=== PATIENT | female | born 1990 | race Caucasian/White ===

== ENCOUNTER 2021-06-09 17:33 | Inpatient (IN) | payer OTHER ==
[~2021-06-09] VITALS: Ht 162.6 cm; Wt 98.2 kg
[2021-06-09] MEDS ORDERED: LORazepam 2 MG TABLET PO ONE (21:15)
[2021-06-09] MEDS ORDERED: QUEtiapine FUMARATE 100 MG TABLET PO ONE (21:15)
[2021-06-09] MEDS ORDERED: METOCLOPRAMIDE HCL 5 MG/ML 2 ML VIAL IVP PRN (21:45)
[2021-06-09] MEDS ORDERED: LOPERAMIDE HCL 2 MG CAPSULE PO PRN (21:45)
[2021-06-09] MEDS ORDERED: SODIUM CHLORIDE 0.9% 1,000 ML IV ONE (21:45)
[2021-06-09 22:08] LABS: COVID AG,FIA SOURCE NASAL SWAB
[2021-06-09] MEDS: TEMAZEPAM 15 MG CAPSULE PO SCH (23:50)
[2021-06-10 09:30] VITALS: BP 126/77
[2021-06-10] MEDS: ACETAMINOPHEN/CODEINE 300-15 MG TABLET PO PRN (12:21)
[2021-06-10 12:46] LABS: GLUCOMETER DEV NAME(LOC) 6S.1; GLUCOSE,POINT OF CARE 207 MG/DL (70-110)
[2021-06-10] MEDS ORDERED: GuaiFENesin/D-METHORPHAN [SUGAR-FREE] 200-20MG/10 ML SYRUP UDCUP PO PRN (13:30)
[2021-06-10 13:31] LABS: BASOPHILS % (AUTO) 0.8 % (0.0-2.0); EOSINOPHILS % (AUTO) 3.2 % (1.0-6.0); HEMATOCRIT 41.9 % (36-46); HEMOGLOBIN 14.4 g/dL (12.0-16.0); LYMPHOCYTES # (AUTO) 1.7 K/uL (1.0-4.8); LYMPHOCYTES % (AUTO) 17.7 % (22.0-44.0); MEAN CORPUSCULAR HEMOGLOBIN 29.2 pg (26.0-34.0); MEAN CORPUSCULAR HGB CONC 34.3 G/dL (31.0-37.0); MEAN CORPUSCULAR VOLUME 85 fL (80-100); MONOCYTES # (AUTO) 0.9 K/uL (0.1-1.0); MONOCYTES % (AUTO) 9.6 % (2.0-9.0); NEUTROPHILS # (AUTO) 6.6 K/uL (1.8-7.7); NEUTROPHILS % (AUTO) 68.7 % (40.0-70.0); PLATELET COUNT (AUTO) 192 K/uL (150-450); RED BLOOD CELL COUNT(AUTO) 4.92 MIL/uL (4.00-5.20); RED CELL DISTRIBUTION WIDTH 13.7 % (11.5-14.5)
[2021-06-10 13:52] LABS: ALANINE AMINOTRANSFERASE 30 U/L (12-78); ALBUMIN 3.1 g/dL (3.4-5.0); ALKALINE PHOSPHATASE 80 U/L (46-116); ANION GAP 7 mmol/L (8-16); ASPARTATE AMINOTRANSFERASE 19 U/L (15-37); BILIRUBIN,TOTAL 0.6 mg/dL (0.1-1.0); CALCIUM, TOTAL 8.6 mg/dL (8.8-10.5); CARBON DIOXIDE 26 mmol/L (22-29); CHLORIDE 104 mmol/L (98-107); CREATININE 0.89 mg/dL (0.60-1.30); GLOMERULAR FILTR. RATE CALC > 60 mL/min (>60); GLUCOSE,RANDOM 145 mg/dL (70-110); POTASSIUM 3.6 mmol/L (3.5-5.1); SODIUM SERUM 137 mmol/L (136-145); TOTAL PROTEIN, SERUM 6.9 g/dL (6.4-8.2); UREA NITROGEN, BLOOD 12 mg/dL (7-18)
[2021-06-10] MEDS: LORazepam 2 MG/ML VIAL IVP PRN (14:41)
[2021-06-10] MEDS: NICOTINE 14 MG/24 HOUR PATCH TD SCH (14:41)
[2021-06-10 16:18] VITALS: BP 144/91
[2021-06-10 16:46] LABS: AMPHET/METH SCREEN,URINE POSITIVE (NEGATIVE); BARBITURATE SCREEN, URINE NEGATIVE (NEGATIVE); BENZODIAZEPINES SCREEN,URINE NEGATIVE (NEGATIVE); CANNABINOID SCREEN,URINE NEGATIVE (NEGATIVE); COCAINE SCREEN,URINE NEGATIVE (NEGATIVE); METHADONE SCREEN, URINE NEGATIVE (NEGATIVE); OPIATE SCREEN,URINE POSITIVE (NEGATIVE); PHENCYCLIDINE SCREEN,URINE NEGATIVE (NEGATIVE)
[2021-06-10] MEDS: MetFORMIN HCL 500 MG TABLET PO SCH (17:47)
[2021-06-10] MEDS: QUEtiapine FUMARATE 25 MG TABLET PO SCH (19:57)
[2021-06-10 20:06] VITALS: BP 131/77
[2021-06-11] MEDS: LORazepam 2 MG/ML VIAL IVP PRN ×2 (05:04→13:36)
[2021-06-11 05:19] VITALS: BP 131/72
[2021-06-11 08:08] VITALS: BP 131/73
[2021-06-11] MEDS: QUEtiapine FUMARATE 25 MG TABLET PO SCH ×2 (08:43→20:53)
[2021-06-11] MEDS: ACETAMINOPHEN/CODEINE 300-15 MG TABLET PO PRN ×2 (08:43→23:36)
[2021-06-11] MEDS: MetFORMIN HCL 500 MG TABLET PO SCH ×2 (08:43→18:02)
[2021-06-11] MEDS: NICOTINE 14 MG/24 HOUR PATCH TD SCH (08:43)
[2021-06-11 08:46] LABS: GLUCOMETER DEV NAME(LOC) 6S.1; GLUCOSE,POINT OF CARE 171 MG/DL (70-110)
[2021-06-11 16:23] VITALS: BP 132/88
[2021-06-11] MEDS ORDERED: LORazepam 2 MG/ML VIAL IVP ONE (18:00)
[2021-06-11 20:41] VITALS: BP 114/67
[2021-06-11] MEDS: TEMAZEPAM 15 MG CAPSULE PO SCH (20:53)
[2021-06-11] MEDS: DICYCLOMINE HCL 10 MG CAPSULE PO PRN (20:58)
[2021-06-12 00:06] VITALS: BP 126/91
[2021-06-12] MEDS: TraZODone HCL 100 MG TABLET PO PRN (00:06)
[2021-06-12 02:51] LABS: GLUCOMETER DEV NAME(LOC) 6S.1; GLUCOSE,POINT OF CARE 149 MG/DL (70-110)
[2021-06-12 05:37] VITALS: BP 142/79
[2021-06-12] MEDS: NICOTINE 14 MG/24 HOUR PATCH TD SCH (08:15)
[2021-06-12] MEDS: MetFORMIN HCL 500 MG TABLET PO SCH ×2 (08:15→18:30)
[2021-06-12] MEDS: QUEtiapine FUMARATE 25 MG TABLET PO SCH (08:15)
[2021-06-12 08:16] VITALS: BP 121/74
[2021-06-12] MEDS: LORazepam 2 MG/ML VIAL IVP PRN (08:25)
[2021-06-12 11:52] LABS: GLUCOMETER DEV NAME(LOC) 6S.1; GLUCOSE,POINT OF CARE 149 MG/DL (70-110)
[2021-06-12] MEDS ORDERED: LORazepam 2 MG/ML VIAL IVP ONE (14:15)
[2021-06-12] MEDS: TEMAZEPAM 15 MG CAPSULE PO SCH (20:24)
[2021-06-12 20:30] VITALS: BP 124/86
[2021-06-13 00:06] LABS: GLUCOMETER DEV NAME(LOC) 6N.1; GLUCOSE,POINT OF CARE 126 MG/DL (70-110)
[2021-06-13 05:10] VITALS: BP 122/74
[2021-06-13] MEDS: LORazepam 2 MG/ML VIAL IVP PRN ×3 (06:41→23:31)
[2021-06-13] MEDS: DICYCLOMINE HCL 10 MG CAPSULE PO PRN (06:46)
[2021-06-13 08:00] VITALS: BP 123/78
[2021-06-13] MEDS: MetFORMIN HCL 500 MG TABLET PO SCH (08:29)
[2021-06-13] MEDS: NICOTINE 14 MG/24 HOUR PATCH TD SCH (08:29)
[2021-06-13] MEDS: QUEtiapine FUMARATE 25 MG TABLET PO SCH (09:21)
[2021-06-13 13:06] LABS: GLUCOMETER DEV NAME(LOC) 6N.1; GLUCOSE,POINT OF CARE 255 MG/DL (70-110)
[2021-06-13] MEDS: ACETAMINOPHEN/CODEINE 300-15 MG TABLET PO PRN (14:08)
[2021-06-13] MEDS ORDERED: DEXTROSE 50%-WATER 25 GM/50 ML SYRINGE IVP PRN (15:30)
[2021-06-13] MEDS: INSULIN LISPRO 100 UNITS/ML SQ PRN ×2 (17:51→20:27)
[2021-06-13] MEDS: MetFORMIN HCL 850 MG TABLET PO SCH (17:53)
[2021-06-13 20:16] LABS: GLUCOMETER DEV NAME(LOC) 6N.1; GLUCOSE,POINT OF CARE 175 MG/DL (70-110)
[2021-06-13] MEDS: TEMAZEPAM 15 MG CAPSULE PO SCH (20:22)
[2021-06-13 20:25] VITALS: BP 123/59
[2021-06-13 21:20] LABS: GLUCOMETER DEV NAME(LOC) 6N.1; GLUCOSE,POINT OF CARE 154 MG/DL (70-110)
[2021-06-14 04:35] VITALS: BP 120/77
[2021-06-14 07:40] VITALS: BP 132/91
[2021-06-14] MEDS: NICOTINE 14 MG/24 HOUR PATCH TD SCH (08:54)
[2021-06-14] MEDS: MetFORMIN HCL 850 MG TABLET PO SCH ×2 (08:55→17:23)
[2021-06-14] MEDS: QUEtiapine FUMARATE 25 MG TABLET PO SCH (08:56)
[2021-06-14 15:36] VITALS: BP 127/71
[2021-06-14 18:01] LABS: GLUCOMETER DEV NAME(LOC) 6N.1; GLUCOSE,POINT OF CARE 128 MG/DL (70-110)
[2021-06-14 19:01] LABS: GLUCOMETER DEV NAME(LOC) 6N.2; GLUCOSE,POINT OF CARE 135 MG/DL (70-110)
[2021-06-14 19:01] LABS: GLUCOMETER DEV NAME(LOC) 6N.2; GLUCOSE,POINT OF CARE 127 MG/DL (70-110)
[2021-06-14 20:13] VITALS: BP 113/71
[2021-06-14] MEDS: TEMAZEPAM 15 MG CAPSULE PO SCH (20:45)
[2021-06-14] MEDS: TraZODone HCL 100 MG TABLET PO PRN (20:45)
[2021-06-14 21:31] LABS: GLUCOMETER DEV NAME(LOC) 6N.2; GLUCOSE,POINT OF CARE 106 MG/DL (70-110)
[2021-06-14] MEDS: ACETAMINOPHEN/CODEINE 300-15 MG TABLET PO PRN (22:14)
[2021-06-15 04:36] VITALS: BP 108/59
[2021-06-15] MEDS: NICOTINE 14 MG/24 HOUR PATCH TD SCH (08:30)
[2021-06-15] MEDS: QUEtiapine FUMARATE 25 MG TABLET PO SCH (08:30)
[2021-06-15] MEDS: MetFORMIN HCL 850 MG TABLET PO SCH (08:30)
[2021-06-15 08:35] VITALS: BP 116/68
[2021-06-15] MEDS ORDERED: METF-1185 PO (09:37)
[2021-06-15] MEDS: INSULIN LISPRO 100 UNITS/ML SQ PRN (11:59)
[2021-06-15 13:56] LABS: GLUCOMETER DEV NAME(LOC) 6N.1; GLUCOSE,POINT OF CARE 133 MG/DL (70-110)
[2021-06-15 13:56] LABS: GLUCOMETER DEV NAME(LOC) 6N.2; GLUCOSE,POINT OF CARE 157 MG/DL (70-110)
== END 2021-06-15 14:15 | DRG 897 ==
LOC: EMS 17:38 → 6N 06-10 06:03 → 6S 06-10 09:06
PROVIDERS: ADMIT Internal Medicine; ATTEND Internal Medicine
DX: F11.23 Opioid dependence with withdrawal (principal); E44.0 Moderate protein-calorie malnutrition; F31.4 Bipolar disorder, current episode depressed, severe, without psychotic features; Z20.822 Contact with and (suspected) exposure to COVID-19; F15.10 Other stimulant abuse, uncomplicated; E66.01 Morbid (severe) obesity due to excess calories; R05.3 Chronic cough; F17.210 Nicotine dependence, cigarettes, uncomplicated; E11.9 Type 2 diabetes mellitus without complications; F41.9 Anxiety disorder, unspecified; Z68.37 Body mass index [BMI] 37.0-37.9, adult; Z98.891 History of uterine scar from previous surgery; Z79.84 Long term (current) use of oral hypoglycemic drugs
CPT/HCPCS: 80053; 80307; 82962; 85025; 99285; J2060; J7030

== ENCOUNTER 2024-01-03 19:10 | Emergency (ER) | payer OTHER ==
[~2024-01-03] VITALS: Ht 162.6 cm; Wt 90.0 kg
[~2024-01-03 19:10] MED LIST: METF-1185 PO
[2024-01-03 19:37] VITALS: TEMP 97.9
[2024-01-03] MEDS ORDERED: BUPR1TAB46 SL (19:41)
[2024-01-03 19:50] LABS: GLUCOMETER DEV NAME(LOC) ER.7; GLUCOSE,POINT OF CARE 108 MG/DL (70-110)
[2024-01-03] MEDS: IBUPROFEN 600 MG TABLET PO ONE (20:20)
[2024-01-03] MEDS: KETOROLAC TROMETHAMINE 30 MG/ML VIAL IM ONE (22:33)
[2024-01-03 22:40] VITALS: BP 125/77; PULSE 68; RESP 20
== END 2024-01-03 23:30 | disposition home or self-care (01) ==
LOC: EMS 19:10
DX: S80.02XA Contusion of left knee, initial encounter (principal); M19.90 Unspecified osteoarthritis, unspecified site; E11.9 Type 2 diabetes mellitus without complications; F17.210 Nicotine dependence, cigarettes, uncomplicated; F15.90 Other stimulant use, unspecified, uncomplicated; Z98.890 Other specified postprocedural states; W19.XXXA Unspecified fall, initial encounter; Y93.89 Activity, other specified; Y92.89 Other specified places as the place of occurrence of the external cause; Y99.8 Other external cause status
CPT/HCPCS: 99283; 82962; 73562; 96372; J1885